=== PATIENT | male | born 1995 | race Caucasian/White ===

== ENCOUNTER 2020-12-20 09:17 | Outpatient (REF) | payer BC, MEDICAID, SELFPAY ==
--- NOTE | ~2020-12-20 | US_ITS ---
EXAMINATION: US EXTREMITY NONVASCULAR, RIGHT AXILLA WITH LEFT FOR COMPARISON CLINICAL INFORMATION: Medial right axilla painful mass with swelling. COMPARISON: None TECHNIQUE: Ultrasound examination of both axillae. FINDINGS: In region of patient's pain, there is a 3.2 x 2.9 x 1.3 cm circumscribed lesion with hyperechoic outer portion and heterogeneous hypoechoic inner portion with the appearance of possible infiltrated lymph node, however, no definite vascular hilum or cleft is seen. This does not appear to have a fluid component. No extension to the skin surface is identified. The lesion lies approximately 1.9 cm deep to the skin surface. No adjacent hyperemia is seen. There is a similar structure within the left axilla. US/US extremity nonvascular IMPRESSION: No evidence of right axilla abscess. No hypervascularity identified. No sebaceous cyst identified. Question if structures could represent an infiltrated lymph node but without obvious internal vascular flow. If symptoms persist, repeat study could be performed in 3 months to ensure stability or improvement.
== END 2020-12-20 09:18 | disposition home or self-care (01) ==
LOC: HO.HMGCX 09:17
PROVIDERS: Visit Provider Physician Assistant
DX: R22.2 Localized swelling, mass and lump, trunk (principal)
CPT/HCPCS: 76882